=== PATIENT | female | born 1965 | race Two or more races ===

== ENCOUNTER 2016-12-23 23:34 | Emergency (ER) | payer OTHER ==
[2016-12-23 23:52] VITALS: BP 137/79; PULSE 70; TEMP 98; BMI 22.2
--- NOTE | 2016-12-24 00:08 | PDOC ---
History of Present Illness - General Chief Complaint: Eye Problem Stated Complaint: EYE PAIN Time Seen by Provider: 12/23/16 23:50 History Source: Patient Exam Limitations: No Limitations - History of Present Illness Initial Comments: 12/24/16 00:02 51yo Female patient with no significant past medical history presents to ED c/o left eye redness, pain, burning, and blurred vision. Patient state she was out last night around smoke. She states when she woke up this morning, she had the sensation of foreign body in her left eye. Patient reports as the day went on, she experience excessive tearing, burning and increase eye redness. She tried OTC "Stye, and Irritated eye relief," with no relief. Patient denies contacts use, but reports corrective lens use for reading, and driving. She denies any other complaints at this time. Timing/Duration: 24 hours Severity: moderate Modifying Factors: improves with: medication. worse with: cold therapy, eating , immobilization, movement, rest, other Associated Symptoms: denies: denies symptoms, chest pain, cough, diaphoresis, fever/chills, headaches, loss of appetite, malaise, nausea/vomiting, rash, seizure, shortness of breath, syncope, weakness, other Aspirin Received prior to arrival: No: no aspirin today, unknown, 81 mg x 1, 81 mg x 2, 81 mg x 3, 81 mg x 4, 325 mg x 1, provided at home, provided by EMS, provided by [facility] Contraindications(Core Measure): No: Allergy, Other, Active Blding w/i 24 hrs., Plavix, Receiving Warfarin Past History - Travel Traveled outside of the country in the last 30 days: No Close contact w/someone who was outside of country & ill: No - Past Medical History Allergies/Adverse Reactions: Allergies Allergy/AdvReac Type Severity Reaction Status Date / Time No Known Allergies Allergy Verified 12/23/16 23:49 Home Medications: Ambulatory Orders Sumatriptan Succinate [Imitrex] 50 mg PO PRN 12/23/16 - Suicide/Smoking/Psychosocial Hx Smoking History: Never smoked Have you smoked in the past 12 months: No Information on smoking cessation initiated: No Hx Alcohol Use: No Drug/Substance Use Hx: No Review of Systems - Review of Systems Able to Perform ROS?: Yes Is the patient limited Nauruan proficient: No HEENTM: Yes: Eye Pain, Blurred Vision, Tearing All Other Systems: Reviewed and Negative *Physical Exam - Vital Signs Last Vital Signs Temp Pulse Resp BP Pulse Ox 98.0 F 70 20 137/79 100 12/23/16 23:50 12/23/16 23:50 12/23/16 23:50 12/23/16 23:50 12/23/16 23:50 - Physical Exam General Appearance: Yes: Nourished, Appropriately Dressed. No: Apparent Distress, Mild Distress, Moderate Distress, Severe Distress HEENT: positive: EOMI, CELENA, Normal Voice, Symmetrical, TMs Normal, Pharynx Normal, Other (Left eye injected. No discharge or drainge noted. Snellen Eye Chart exam: Lt eye 20/40, Rt eye 20/13 with corrective lens use.). negative: Normal ENT Inspection, Pale Conjunctivae, Photophobia, Scleral Icterus (R), Scleral Icterus (L), Pharyngeal Erythema, Tonsillar Erythema, Nasal Congestion, Rhinorrhea, Sinus Tenderness, TM Bulging, TM Erythema, Excessive drooling Neck: positive: Trachea midline, Supple. negative: Decreased range of motion, Stridor, Lymphadenopathy (R), Lymphadenopathy (L), Tender lateral, Tender midline Respiratory/Chest: positive: Lungs Clear, Normal Breath Sounds. negative: Chest Tender, Respiratory Distress, Accessory Muscle Use, Labored Respiration, Rapid RR, Rhonchi, Stridor, Wheezing, Hyperresonant Cardiovascular: positive: Regular Rhythm, Regular Rate *DC/Admit/Observation/Transfer Diagnosis at time of Disposition: Iritis - Discharge Dispostion Disposition: HOME Condition at time of disposition: Stable Admit: No - Referrals - Patient Instructions Printed Discharge Instructions: DI for Anterior Uveitis Additional Instructions: Follow up with your dairy farm manager as discussed, within 3 days. If your symptoms get worse, condition not getting better with treatment within 48 hours. Return immediately for further evaluation. You may also have evaluation by International Account Manager such as "[facility]," and so forth. Eye drops administration: 2 drops every 3 hours while awake to left eye x 24 hours. Do not use more than 2 drops as excessive use of eye drops with steroids can be harmful in large doses. Then 1 drop every 4-6 hours while awake to left eye x 48 hours or when seen by eyeglass cutter to discontinue. Apply cool compress to affect area every 3-4 hours for 10 mins on and off. Return if any concerns. Print Language: PERSIAN - Post Discharge Activity
[2016-12-24] MEDS ORDERED: TOBRA 0.3%/DEXAMETH 0.1% OPHTHALMIC SUSP 2.5 ML BTL OS ONE (00:13)
== END 2016-12-24 00:38 | disposition home or self-care (01) ==
LOC: JER 23:34
DX: H20.9 Unspecified iridocyclitis (principal)
CPT/HCPCS: 99281-25